=== PATIENT | male | born 1950 | race Caucasian/White ===

== ENCOUNTER 2021-09-14 21:40 | Emergency (ER) | payer OTHER, MEDICARE ==
[~2021-09-14] VITALS: Ht 170.2 cm; Wt 86.2 kg
[~2021-09-14 21:40] MED LIST: CYCLOBENZAPRINE5 MG PO
[2021-09-14] MEDS ORDERED: PRASUGREL HCL PO (23:05)
[2021-09-14] MEDS ORDERED: LISINOPRIL10 MG PO (23:05)
[2021-09-14] MEDS ORDERED: GLIPIZIDE 10 MG10 MG PO (23:06)
[2021-09-14] MEDS ORDERED: METFORMIN HCL500 M3 PO (23:06)
[2021-09-15 00:12] LABS: URINE BILIRUBIN NEGATIVE (Negative); URINE BLOOD 1+ (Negative); URINE COLOR YELLOW; URINE GLUCOSE-RANDOM 1+ (Negative); URINE KETONES 1+ (Negative); URINE LEUKOCYTES-REFLEX NEGATIVE (Negative); URINE NITRITE-REFLEX NEGATIVE (Negative); URINE PROTEIN 2+ (Negative); URINE SPECIFIC GRAVITY 1.025 (1.005-1.030); URINE UROBILINOGEN 0.2 E.U./dl (0.2-1.0)
[2021-09-15 00:13] LABS: URINE CLARITY SL HAZY
[2021-09-15 00:19] LABS: CRYSTALS None Seen /LPF (None Seen); FINE GRANULAR CASTS 0-3 Few /LPF (None Seen); HYALINE CASTS 0-3 Few /LPF (None Seen); MUCUS 4-6 Moderate strn/LPF (None Seen); RENAL EPITHELIAL CELLS 0-3 Few /LPF (None Seen); SQUAMOUS 0-3 Few /LPF (0-3); URINE WBC-REFLEX 6-15 Few /HPF (0-5)
[2021-09-15] MEDS ORDERED: HYDROCODON-ACE1 EAC7 PO (02:49)
[2021-09-15 03:02] VITALS: BP 163/91
== END 2021-09-15 03:03 | disposition home or self-care (01) ==
LOC: M.ERS 21:40
PROVIDERS: Personal Emergency Response Attendant
DX: M54.50 Low back pain, unspecified (principal); I16.0 Hypertensive urgency; Z79.899 Other long term (current) drug therapy